=== PATIENT | female | born 1975 | race Caucasian/White ===

== ENCOUNTER 2016-09-07 15:22 | Emergency (ER) | payer BC, OTHER ==
[~2016-09-07] VITALS: Ht 165.1 cm; Wt 83.9 kg
[~2016-09-07 15:22] MED LIST: DOCU100C PO; ESCI20TA10 PO; OXYC-323 PO
--- NOTE | 2016-09-07 15:55 | PHYS DOC ---
Past Medical History Past Medical History: No Pertinent History Past Surgical History: Hysterectomy, Other Additional Past Surgical Histo: umbilical hernia, bowel obstruction-partial colon removal, gastric sleeve Alcohol Use: Occasionally Drug Use: None Adult General Chief Complaint Chief Complaint: ABDOMINAL PAIN [facility] HPI Patient is a 40 year old female who presents with abdominal pain. She 's had a gastrectomy sleeve in September 2015 and then one month later had to have 1 foot of her small intestine removed secondary to obstruction and then April had a hernia repair. She states she's been doing fine until 2 days ago when she had a intense abdominal workout and then yesterday she started having pain that radiated through her midline area she states it comes in waves and sometimes constant. She states she slept well but this morning to get worse again. She's been passing gas and having normal bowel movements. She did have some nausea but no vomiting. She is concerned that she could be obstructed again. Review of Systems Review of Systems Constitutional: Denies fever or chills [] Eyes: Denies change in visual acuity, redness, or eye pain [] HENT: Denies nasal congestion or sore throat [] Respiratory: Denies cough or shortness of breath [] Cardiovascular: No additional information not addressed in HPI [] GI: Positive for abdominal pain, nausea, denies any vomiting, bloody stools or diarrhea [] : Denies dysuria or hematuria [] Musculoskeletal: Denies back pain or joint pain [] Integument: Denies rash or skin lesions [] Neurologic: Denies headache, focal weakness or sensory changes [] Endocrine: Denies polyuria or polydipsia [] Current Medications Current Medications Current Medications Medications (Trade) Dose Ordered Sig/Macy Start Time Stop Time Status Last Admin Dose Admin Hydromorphone HCl (Dilaudid) 1 mg PRN Q15MIN PRN 09/07/16 17:30 09/08/16 17:29 09/07/16 17:29 1 MG Info (Do NOT chart on this entry -- for MONITORING) 1 each PRN DAILY PRN 09/07/16 16:15 09/09/16 16:14 Iohexol (Omnipaque 240 Mg/ml) 30 ml 1X ONCE 09/07/16 16:00 09/07/16 16:02 DC 09/07/16 17:17 30 ML Iohexol (Omnipaque 300 Mg/ml) 75 ml 1X ONCE 09/07/16 16:00 09/07/16 16:02 DC 09/07/16 17:17 75 ML Ondansetron HCl (Zofran) 4 mg 1X ONCE 09/07/16 17:30 09/07/16 17:31 DC 09/07/16 17:30 4 MG Sodium Chloride (Iv Sodium Chloride 0.9% 1000ml Bag) 1,000 ml @ 1,000 mls/hr Q1H 09/07/16 16:15 09/07/16 17:14 DC 09/07/16 16:26 1,000 MLS/HR Allergies Allergies Allergies Coded Allergies Type Severity Reaction Last Updated Verified morphine Allergy Intermediate itching and hives 04/27/16 Yes nickel Allergy Intermediate itching rash 04/27/16 Yes Physical Exam Physical Exam Constitutional: Well developed, well nourished, no acute distress, non-toxic appearance. [] HENT: Normocephalic, atraumatic, bilateral external ears normal, oropharynx moist, no oral exudates, nose normal. [] Eyes: PERRLA, EOMI, conjunctiva normal, no discharge. [] Neck: Normal range of motion, no tenderness, supple, no stridor. [] Cardiovascular:Heart rate regular rhythm, no murmur [] Lungs & Thorax: Bilateral breath sounds clear to auscultation [] Abdomen: Bowel sounds pitched, soft, tender to palpation throughout the midline area with mild guarding, no rebound, no masses, no pulsatile masses. [] Skin: Warm, dry, no erythema, no rash. [] Back: No tenderness, no CVA tenderness. [] Extremities: No tenderness, no cyanosis, no clubbing, ROM intact, no edema. [] Neurologic: Alert and oriented X 3, normal motor function, normal sensory function, no focal deficits noted. [] Psychologic: Affect normal, judgement normal, mood normal. [] Current Patient Data Vital Signs Vital Signs Date Time Temp Pulse Resp B/P Pulse Ox O2 Delivery O2 Flow Rate FiO2 09/07/16 17:58 71 17 151/94 100 Room Air 09/07/16 15:45 97.9 97.9 Lab Values Laboratory Tests Test 09/07/16 15:55 09/07/16 16:10 Urine Collection Type Unknown Urine Color Yellow Urine Clarity Clear Urine pH 7.0 Urine Specific [place] 1.025 Urine Protein Negativemg/dL (NEG-TRACE) Urine Glucose (UA) Negativemg/dL (NEG) Urine Ketones (Stick) Negativemg/dL (NEG) Urine Blood Negative (NEG) Urine Nitrite Negative (NEG) Urine Bilirubin Negative (NEG) Urine Urobilinogen Dipstick 1.0mg/dL (0.2 mg/dL) Urine Leukocyte Esterase Negative (NEG) Urine RBC 0/HPF (0-2) Urine WBC Rare/HPF (0-4) Urine Squamous Epithelial Cells Few/LPF Urine Bacteria Moderate/HPF (0-FEW) Urine Mucus Mod/LPF White Blood Count 6.3x10^3/uL (4.0-11.0) Red Blood Count 4.84x10^6/uL (3.50-5.40) Hemoglobin 15.3g/dL (12.0-15.5) Hematocrit 45.9% (36.0-47.0) Mean Corpuscular Volume 95fL (79-100) Mean Corpuscular Hemoglobin 32pg (25-35) Mean Corpuscular Hemoglobin Concent 33g/dL (31-37) Red Cell Distribution Width 12.5% (11.5-14.5) Platelet Count 281x10^3/uL (140-400) Neutrophils (%) (Auto) 64% (31-73) Lymphocytes (%) (Auto) 29% (24-48) Monocytes (%) (Auto) 6% (0-9) Eosinophils (%) (Auto) 1% (0-3) Basophils (%) (Auto) 1% (0-3) Neutrophils # (Auto) 4.0x10^3uL (1.8-7.7) Lymphocytes # (Auto) 1.8x10^3/uL (1.0-4.8) Monocytes # (Auto) 0.4x10^3/uL (0.0-1.1) Eosinophils # (Auto) 0.0x10^3/uL (0.0-0.7) Basophils # (Auto) 0.0x10^3/uL (0.0-0.2) Prothrombin Time 12.0SEC (11.7-14.0) Prothrombin Time INR 0.9 (0.8-1.1) PTT 26SEC (24-38) Sodium Level 139mmol/L (136-145) Potassium Level 3.6mmol/L (3.5-5.1) Chloride Level 103mmol/L (98-107) Carbon Dioxide Level 29mmol/L (21-32) Anion Gap 7 (6-14) Blood Urea Nitrogen 14mg/dL (7-20) Creatinine 0.8mg/dL (0.6-1.0) Estimated GFR (Cockcroft-Gault) 79.9 Glucose Level 78mg/dL (70-99) Calcium Level 8.5mg/dL (8.5-10.1) Total Bilirubin 0.4mg/dL (0.2-1.0) Direct Bilirubin 0.2mg/dL (0.0-0.2) Aspartate Amino Transferase (AST) 20U/L (15-37) Alanine Aminotransferase (ALT) 26U/L (14-59) Alkaline Phosphatase 50U/L (46-116) Creatine Kinase 61U/L (26-192) Total Protein 7.5g/dL (6.4-8.2) Albumin 3.9g/dL (3.4-5.0) Lipase 94U/L (73-393) Serum Test, Qualitative Negative (NEG) Laboratory Tests 09/07/16 16:10 Laboratory Tests 09/07/16 16:10 EKG EKG [] Radiology/Procedures Radiology/Procedures [facility] [address] [place] [address] IMAGING REPORT Signed PATIENT: HUSEYIN ORLANDO ACCOUNT: [id number] : 1975 LOCATION: ER AGE: 40 SEX: F EXAM STATUS: REG ER ORD. PHYSICIAN: DIEGO WELDON MD REASON: abd pain PROCEDURE: CT ABD PELV W/ORAL&IV CONTRAST Examination: CT of the abdomen pelvis with oral and IV contrast. HISTORY History of severe right lower quadrant abdominal pain for 2 days. COMPARISON None available. TECHNIQUE Axial CT images of the abdomen pelvis were performed with oral and IV contrast. Coronal sagittal reformats were performed. Exposure: One or more of the following dose reduction technique were utilized for this examination: 1. Automated exposure control. 2.Adjustment of MA and /or KV according to patient size. 3. Use of iterative reconstruction technique. Findings: Minimal bibasilar lung atelectasis. No evidence of free air identified in the abdomen. The visualized liver, spleen, adrenals grossly appears unremarkable. The gallbladder is mildly distended. Small hiatal hernia is identified. The visualized pancreas grossly appears unremarkable. Small bowel is nondilated. Prior surgical changes identified in the small bowel in the left mid abdomen. The appendix is normal. Small amount of fluid and feces identified in the colon throughout. Urinary bladder is mildly distended. No significant free fluid identified in the pelvis. Intrauterine contraceptive device identified. Bilateral kidneys enhance symmetrically. The caliber of the aorta grossly appears unremarkable. No evidence of lytic bony destructive lesion identified. IMPRESSION 1. No acute intra-abdominal findings. 2. Small hiatal hernia. Electronically signed by: Chadd Aaron (Sep 07, 2016 17:42:26) DICTATED and SIGNED BY: CHADD AARON MD DATE: 09/07/161741 CC: DIEGO WELDON MD; DIANA ELDER; NON,STAFF ~ Impressions: Abdominal pain, likely abdominal wall pain Course & Med Decision Making Course & Med Decision Making Pertinent Labs and Imaging studies reviewed. (See chart for details) CT scan abdomen pelvis in addition all of her labs do not show any acute abnormalities. She did an extensive ab work out and she states the pains worse when she moves. We'll discharge home with a few tablets of Howard that she is instructed to use very sparingly and half times and she is offered to monitor pain and discomfort. She is instructed to use MiraLAX while taking any tablets of Howard as it can cause constipation. She is also instructed not to drive or taking this medicine as it can impair judgment and make you sleepy. Return precautions given for worsening pain, constipation, fevers or other concerns. Dragon Disclaimer Dragon Disclaimer This electronic medical record was generated, in whole or in part, using a voice recognition dictation system. Departure Departure Impression: Primary Impression: Abdominal wall pain Disposition: HOME, SELF-CARE Condition: STABLE Referrals: NON,STAFF (PCP) Patient Instructions: Abdominal Pain (Nonspecific) Additional Instructions: The CAT scan of her abdomen pelvis did not show any acute abnormalities. Your labs also was within normal limits. Your being discharged home. This could be the fact that you did too much of an AB workout and your abdominal wall is just sore and tender. You are being discharged home with 12 tablets of Howard, be careful using this medicine as it is a narcotic pain medicine and can impair judgment and make you sleepy. Please do not drive while taking Howard. You will also need to use MiraLAX while taking this to help prevent constipation. Be careful not to take too much Howard as it do not want to mask your pain completely because of your pain gets worse he develop fevers or other concerns and which return back to emergency department. Scripts Hydrocodone/Apap 5-325 (Howard 5-325 Tablet)1 Each Tablet1-2 Tab PO Q4-6HRS #14 TAB Prov:DIEGO WELDON MD 09/07/16 DIEGO WELDON MD Sep 07, 2016 15:55
[2016-09-07] MEDS ORDERED: IOHEXOL 240 MG/ML 50ML VIAL. PO ONE (16:00)
[2016-09-07] MEDS ORDERED: IOHEXOL 300 MG/ML 75 ML VIAL IV ONE (16:00)
[2016-09-07 16:08] LABS: BILIRUBIN,URINE NEGATIVE (NEG); GLUCOSE,URINE NEGATIVE (NEG); NITRITE,URINE NEGATIVE (NEG); PROTEIN,URINE NEGATIVE (NEG-TRACE)
[2016-09-07] MEDS ORDERED: CONTRAST GIVEN MC PRN (16:15)
[2016-09-07] MEDS ORDERED: IV NORMAL SALINE 1000ML BAG 1,000 ML IV SCH (16:15)
[2016-09-07 16:18] LABS: BACTERIA,URINE MODERATE /HPF (0-FEW); RBC,URINE 0 /HPF (0-2); SQUAMOUS EPITHELIAL CELL,UR FEW /LPF; WBC,URINE RARE /HPF (0-4)
[2016-09-07 16:18] LABS: BASO % 1 % (0-3); EOS % 1 % (0-3); HEMATOCRIT 45.9 % (36.0-47.0); HEMOGLOBIN 15.3 g/dL (12.0-15.5); LYMPH # 1.8 x10^3/uL (1.0-4.8); LYMPH % 29 % (24-48); MEAN CORPUSCULAR HEMOGLOBIN 32 pg (25-35); MEAN CORPUSCULAR HGB CONC 33 g/dL (31-37); MEAN CORPUSCULAR VOLUME 95 fL (79-100); MONO % 6 % (0-9); NEUT % 64 % (31-73); PLATELET COUNT 281 x10^3/uL (140-400); RED BLOOD COUNT 4.84 x10^6/uL (3.50-5.40); RED CELL DISTRIBUTION WIDTH 12.5 % (11.5-14.5); WHITE BLOOD COUNT 6.3 x10^3/uL (4.0-11.0)
[2016-09-07 16:29] LABS: CALCIUM 8.5 mg/dL (8.5-10.1); CREATININE 0.8 mg/dL (0.6-1.0); GFR 79.9; INR 0.9 (0.8-1.1); POTASSIUM 3.6 mmol/L (3.5-5.1)
[2016-09-07 16:35] LABS: ALBUMIN 3.9 g/dL (3.4-5.0); DIRECT BILIRUBIN 0.2 mg/dL (0.0-0.2); TOTAL BILIRUBIN 0.4 mg/dL (0.2-1.0); TOTAL PROTEIN 7.5 g/dL (6.4-8.2)
[2016-09-07 16:56] LABS: NEG OBC SER NEG; POS OBC SER POS
[2016-09-07] MEDS ORDERED: HYDROmorphone 2 MG/ML VIAL IV/SQ PRN (17:30)
[2016-09-07] MEDS ORDERED: ONDANSETRON PF 4 MG/2 ML VIAL. IV ONE (17:30)
--- NOTE | 2016-09-07 17:43 | RAD ---
Examination: CT of the abdomen pelvis with oral and IV contrast. HISTORY History of severe right lower quadrant abdominal pain for 2 days. COMPARISON None available. TECHNIQUE Axial CT images of the abdomen pelvis were performed with oral and IV contrast. Coronal sagittal reformats were performed. Exposure: One or more of the following dose reduction technique were utilized for this examination: 1. Automated exposure control. 2.Adjustment of MA and /or KV according to patient size. 3. Use of iterative reconstruction technique. Findings: Minimal bibasilar lung atelectasis. No evidence of free air identified in the abdomen. The visualized liver, spleen, adrenals grossly appears unremarkable. The gallbladder is mildly distended. Small hiatal hernia is identified. The visualized pancreas grossly appears unremarkable. Small bowel is nondilated. Prior surgical changes identified in the small bowel in the left mid abdomen. The appendix is normal. Small amount of fluid and feces identified in the colon throughout. Urinary bladder is mildly distended. No significant free fluid identified in the pelvis. Intrauterine contraceptive device identified. Bilateral kidneys enhance symmetrically. The caliber of the aorta grossly appears unremarkable. No evidence of lytic bony destructive lesion identified. IMPRESSION 1. No acute intra-abdominal findings. 2. Small hiatal hernia. Electronically signed by: Chadd Aaron (Sep 07, 2016 17:42:26)
[2016-09-07 17:58] VITALS: BP 151/94
[2016-09-07] MEDS ORDERED: HYDR-971 PO (18:31)
--- NOTE | 2016-09-07 18:52 | EKG ---
[facility] [address] [place] [address] Test Date: 2016-09-07 Test Time: 16:23:59 Pat Name: HUSEYIN ORLANDO Department: Room: Gender: F Mobile Practice Lead: : 1975 Requested By: DIEGO WELDON Order Number: [id number] Reading MD: Lopez Perry Measurements Intervals [place] Rate: 54 P: 38 MN: 148 QRS: -7 QRSD: 90 T: 51 QT: 410 QTc: 390 Interpretive Statements SINUS RHYTHM Electronically Signed On 09-08-2016 17:56:50 CDT by Lopez Perry
== END 2016-09-07 18:41 | disposition home or self-care (01) ==
LOC: ER 15:22
DX: R10.9 Unspecified abdominal pain (principal); R11.0 Nausea; Z90.3 Acquired absence of stomach [part of]
CPT/HCPCS: 36415; 74177; 80048; 80076; 81001; 82550; 83690; 84703; 85027; 85610; 85730; 87086; 93005; 96361; 96374; 96375; 99285; J1170; J2405; J7030; Q9966; Q9967